=== PATIENT | female | born 1965 | race Caucasian/White ===

== ENCOUNTER 2016-09-12 21:05 | Emergency (ER) | payer OTHER ==
[~2016-09-12] VITALS: Ht 165.1 cm; Wt 79.4 kg
[~2016-09-12 21:05] MED LIST: ALPRAZOLAM1 M2 PO; AMBIEN10 M1 PO; CYCLOBENZAPRINE10 M1 PO; DEPAKOTE ER500 M1 PO; KLONOPIN1 M1 PO; PERCOCET 5-3251 EACH PO; PREDNISONE 20MG20 MG PO; VALIUM2 MG PO; VALTREX1 GM PO; ZOFRAN ODT4 MG SL; ZOLPIDEM TARTRAT5 M1 PO
[2016-09-12 21:34] VITALS: BP 110/74
--- NOTE | 2016-09-12 21:42 | ED EYE COMPLAINT ---
History of Present Illness General Chief Complaint: Eye Problems Stated Complaint: ?STYE IN RIGHT EYE Source: patient, old records Exam Limitations: no limitations Vital Signs & Intake/Output Vital Signs & Intake/Output Vital Signs Date Time Temp Pulse Resp B/P Pulse O2 O2 Flow FiO2 Ox Delivery Rate 09/12 2134 98.9 82 18 110/74 98 Room Air Allergies Coded Allergies: Sulfa (Sulfonamide Antibiotics) (Intermediate, RASH 05/12/16) divalproex sodium (From DEPAKOTE) (RASH ON CHEST, WHEEZE 05/26/16) levofloxacin (RASH 05/26/16) lithium (IRRADERMA MULTIFORM MINOR 05/26/16) quetiapine (From SEROQUEL) (RASH 05/26/16) Reconcile Medications Alprazolam 1 MG TABLET 1 TAB PO BID ANXIETY (Reported) Polytrim (Polytrim Eye Drops) 10,000 UNIT-1 MG/ML DROPS 1 GTT OPH Q6 stye Zolpidem Tartrate 5 MG TABLET 1 TAB PO QPM SLEEP (Reported) Triage Note: RECEIVED 50 YO FEMALE C/O REDNESS AND PAIN TO RIGHT EYE. PT THINKS SHE MAY HAVE A STY IN THE RIGHT LOWER EYELID. Triage Nurses Notes Reviewed? yes Onset: Abrupt Duration: day(s): (3), constant Timing: recent history Injury Environment: home Severity: moderate Severity Numbers: 5 No Modifying Factors: none Right Eye Associated Symptoms: eyelid swelling HPI: 50-year-old female presents emergency room complaining of a questional stye to her right lower eyelid for the past 3 days. She denies any known injury or trauma. The patient wears glasses she denies contact lens use. Patient denies foreign body sensation to eye. No vision changes, no facial swelling or discharge from the eye no fever no chills no rhinorrhea congestion no modifying factors she does not talk care for the symptoms until today. She has been applying warm compresses to her eye without improvement Past History Travel History Traveled to [place] past 21 day No Medical History Any Pertinent Medical History? 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 No Review of Systems Review of Systems Constitutional: Reports: see HPI. All Other Systems: Reviewed and Negative Comments Review of systems: See HPI, All other systems negative. Constitutional, no chills no fever, no malaise HEENT: No visual changes no sore throat no congestion, no ear pain Cardiovascular: No chest pain , no palpitation , no orthopnea no ankle swelling Skin, no rashes, no change in skin Respiratory: No dyspnea no cough no sputum no hemoptysis GI: No nausea no vomiting, no diarrhea, no bloating/constipation : No dysuria No hematuria, no frequency, no discharge Muscle skeletal: No joint pain, no back pain, no neck pain, Neurologic: no headache Psych: No stress . Heme/endocrine: No bruising no bleeding Immunology: No lymphadenopathy, Physical Exam General Appearance: well developed/nourished, no apparent distress, alert, awake , comfortable General Inspection: normal inspection Eyelid: normal inspection Conjunctiva/Sclera: normal inspection Cornea: normal inspection EOM: intact Pupil: normal accommodation, normal pupil, PERRL General Inspection: normal inspection Eyelid: everted for exam, stye (r lower lid) Conjunctiva/Sclera: normal inspection Cornea: normal inspection EOM: intact Pupil: normal accommodation, normal pupil, PERRL Physical Exam Comments: Well-developed well-nourished patient in no apparent distress. HEENT: Atraumatic, extraocular motion intact no periorbital erythema or swelling Neck: Supple, FROM, Back: FROM, Cardiovascular: Regular rate and rhythms no murmurs rubs or gallops, Respiratory: No respiratory distress. Patient speaking in full complete sentences Extremities: full range of motion Neuro: Alert and oriented x3 Skin: Warm & dry;No appreciable rash on exposed skin Psych: Mood affect normal, normal memory normal judgment. Progress Differential Diagnosis: corneal abrasion, corneal foreign body, conjunctivitis, chalazion, hordeolum, foreign body Plan of Care: Eyelids were averted there is no visualized or palpated foreign body there is a small stye noted to the right lower mid eyelid there is no surrounding periorbital edema or erythema no conjunctival injection Discussed with the patient there is the possibility of foreign by not seen on examination today need for close follow-up with her primary care physician information was also provided for ophthalmology follow-up on Thursday, advised return anytime sooner with any concerns there is no vision loss patient is nontoxic-appearing answered all of her questions she feels comfortable plan Departure Departure Time of Disposition: 2143 Disposition: HOME OR SELF CARE Condition: Stable Clinical Impression Primary Impression: Chalazion Referrals: AMY GAMBINO,KEITH Brooks (PCP/Family) LUZ MARINA GAMBINO,ALEXYS Ocampo Additional Instructions: Follow-up with pigs feet cleaner Dr. Burgos as well as well as your primary care physician on Thursday. Polytrim eyedrops as discussed return to ER anytime sooner if any concerns Departure Forms: Customer Survey General Discharge Information Prescriptions: Current Visit Scripts Polytrim (Polytrim Eye Drops) 1 GTT OPH Q6 #10 ML
[2016-09-12] MEDS ORDERED: POLYTRIM EYE DR10 ML OPH (21:45)
== END 2016-09-12 21:51 ==
LOC: ERH 21:05
DX: H00.12 Chalazion right lower eyelid (principal)

== ENCOUNTER 2017-06-30 19:06 | Emergency (ER) | payer SELFPAY ==
[~2017-06-30] VITALS: Ht 165.1 cm; Wt 81.6 kg
[~2017-06-30 19:06] MED LIST changes: +DICLOFENAC SODI75 M2 PO; +LASIX20 M1 PO; +MARI AD; +NAPROSYN500 M1 PO; +ORPHENADRINE C100 MG PO; +POLYTRIM EYE DR10 ML OPH; +POTASSIUM CHLO20 ME2 PO
[2017-06-30 19:22] VITALS: BP 123/87
== END 2017-06-30 22:05 | disposition admitted as inpatient to this hospital (09) ==
LOC: ERH 19:06
DX: M25.50 Pain in unspecified joint (principal)